=== PATIENT | female | born 1985 | race Caucasian/White ===

== ENCOUNTER 2016-07-04 20:19 | Inpatient (IN) | payer OTHER ==
[~2016-07-04] VITALS: Ht 160 cm; Wt 65.8 kg
[~2016-07-04 20:19] MED LIST: COLACE 100MG C100 MG PO; IBUPROFEN600 MG PO; NORCO 5-325 TA1 EACH PO
[2016-07-04 20:25] LABS: HEMOGLOBIN 9.6 gm/dl (12.3-15.3)
[2016-07-05 00:28] LABS: HEMOGLOBIN 10.3 gm/dl (12.3-15.3)
[2016-07-05 01:13] LABS: RED BLOOD COUNT 3.28 M/UL (4.00-5.10); WHITE BLOOD COUNT 16.6 K/UL (4.5-11.0)
[2016-07-05 07:52] LABS: HEMOGLOBIN 8.2 gm/dl (12.3-15.3)
[2016-07-06 06:55] LABS: RED BLOOD COUNT 2.19 M/UL (4.00-5.10); WHITE BLOOD COUNT 5.5 K/UL (4.5-11.0)
[2016-07-07 07:57] LABS: HEMOGLOBIN 9.7 gm/dl (12.3-15.3); RED BLOOD COUNT 3.17 M/UL (4.00-5.10); WHITE BLOOD COUNT 6.3 K/UL (4.5-11.0)
[2016-07-07] MEDS ORDERED: IRON325 M1 PO (10:03)
[2016-07-07] MEDS ORDERED: COLACE 100MG C100 MG PO (10:03)
[2016-07-07] MEDS ORDERED: NORCO 5-325 TA1 EACH PO (10:06)
[2016-07-07] MEDS ORDERED: IBUPROFEN600 MG PO (10:06)
== END 2016-07-07 10:58 | disposition home or self-care (01) | DRG 777 ==
LOC: ER1 20:19 → M/S 20:44 → ZEROF 20:44 → M/S 07-05 00:40
PROVIDERS: Emergency Medicine; Obstetrics & Gynecology; Surgery; ADMIT Obstetrics & Gynecology
PROC: 0WJJ4ZZ Inspection of Pelvic Cavity, Percutaneous Endoscopic Approach (ICD-10-PCS; 2016-07-04)
PROC: 30233N1 Transfusion of Nonautologous Red Blood Cells into Peripheral Vein, Percutaneous Approach (ICD-10-PCS; 2016-07-04)
PROC: 30233N1 Transfusion of Nonautologous Red Blood Cells into Peripheral Vein, Percutaneous Approach (ICD-10-PCS; 2016-07-04)
PROC: 10T24ZZ Resection of Products of Conception, Ectopic, Percutaneous Endoscopic Approach (ICD-10-PCS; principal; 2016-07-04 21:50)
PROC: 10D27ZZ Extraction of Products of Conception, Ectopic, Via Natural or Artificial Opening (ICD-10-PCS; 2016-07-04 21:50)
PROC: 3E0234Z Introduction of Serum, Toxoid and Vaccine into Muscle, Percutaneous Approach (ICD-10-PCS; 2016-07-05)
PROC: 30233N1 Transfusion of Nonautologous Red Blood Cells into Peripheral Vein, Percutaneous Approach (ICD-10-PCS; 2016-07-06)
DX: O00.10 Tubal pregnancy without intrauterine pregnancy (principal); O08.3 Shock following ectopic and molar pregnancy; K66.1 Hemoperitoneum; O08.1 Delayed or excessive hemorrhage following ectopic and molar pregnancy; D62 Acute posthemorrhagic anemia; Z67.41 Type O blood, Rh negative; Z29.13 Encounter for prophylactic Rho(D) immune globulin; F17.200 Nicotine dependence, unspecified, uncomplicated
CPT/HCPCS: 36415; 36430; 51702; 81001; 84703; 85014; 85018; 85025; 85027; 85461; 86850; 86900; 86901; 86920; 96361; 96365; 99285; G0378; J0696; J1200; J1885; J2250; J2270; J2405; J2790; J2795; J3010; J7030; J7050; J7120; P9016